=== PATIENT | female | born 1965 | race Hispanic/Latino ===

== ENCOUNTER 2018-01-08 16:23 | Emergency (ER) | payer SELFPAY ==
[2018-01-08] MEDS ORDERED: LIDOCAINE VISCOUS 2% SOLN 15 ML UDC ONE (16:59)
[2018-01-08] MEDS ORDERED: MAGNE/ALUM HYDROXD 30 ML UCUP ONE (16:59)
[2018-01-08 17:12] LABS: Absolute Lymphocytes (CBC) 2.6 K/uL (0.7-4.9); Absolute Monocytes 0.4 K/uL (0.1-1.3); Absolute Neutrophil 6.2 K/uL (1.8-8.0); Basophils % 1.1 % (0-1.3); Eosinophils % 1.5 % (0-4.4); Hematocrit 46.7 % (36.0-45.0); Lymphocytes % 27.4 % (15.3-44.8); MCH 29.5 pg (27.0-35.0); MPV 9.7 fL (7.6-11.3); Monocytes % 4.4 % (3.3-12.3); RBC Red Blood Cell Count 5.37 M/uL (3.86-4.86)
[2018-01-08 17:13] LABS: Protime INR 0.92
--- NOTE | 2018-01-08 17:14 | RAD REPORT ---
EXAM DESCRIPTION: RAD - Chest Single View - 01/08/2018 5:06 pm CLINICAL HISTORY: CHEST PAIN Chest pain. COMPARISON: Chest Single View dated 01/09/2016; CHEST SINGLE VIEW dated 03/07/2013; CHEST SINGLE VIE W dated 04/08/2008 FINDINGS: Portable technique limits examination quality. The lungs are grossly clear. The heart is normal in size. No displaced fractures. IMPRESSION: No acute intrathoracic process suspected.
[2018-01-08 17:27] LABS: Potassium 3.7 mmol/L (3.5-5.1); Troponin (Emerg Dept Use Only) 0.14 ng/mL (0.0-0.045)
[2018-01-08] MEDS ORDERED: ENOXAPARIN 80 MG/0.8 ML SQ ONE (17:44)
--- NOTE | 2018-01-08 17:52 | ER ---
Nurse's Notes [facility] Name: Ai Woodward Age: 52 yrs Sex: Female : 1965 Arrival Date: 01/08/2018 Time: 16:31 Bed 3 Private MD: Diagnosis: Chest pain, unspecified;Non-ST elevation (NSTEMI) myocardial infarction Presentation: 01/08 16:31 Presenting complaint: Patient states: Sternal chest pain X1 week with radiation to arm. aj Patient reports pain subsides with nitro but returns. Transition of care: patient was not received from another setting of care. Onset of symptoms was January 01, 2018. Risk Assessment: Do you want to hurt yourself or someone else? Patient reports no desire to harm self or others. Initial Sepsis Screen: Does the patient meet any 2 criteria? No. Patient's initial sepsis screen is negative. Does the patient have a suspected source of infection? No. Patient's initial sepsis screen is negative. Care prior to arrival: None. 16:31 Method Of Arrival: Ambulatory 16:31 Acuity: CORY 2 aj Triage Assessment: 16:34 General: Appears in no apparent distress. uncomfortable, Behavior is calm, cooperative, aj appropriate for age. Pain: Complains of pain in chest. Neuro: Level of Consciousness is awake, alert, obeys commands, Oriented to person, place, time, situation, Appropriate for age. Cardiovascular: Reports chest pain, shortness of breath. Respiratory: Airway is patent Respiratory effort is even, unlabored, Respiratory pattern is regular, symmetrical. GI: Reports gaseousness. Derm: Skin is intact, is healthy with good turgor, Skin is pink, warm \T\ dry. normal. 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 - Social history:: Smoking status: Patient uses tobacco products, smokes one-half pack cigarettes per day. - Ebola Screening: : Patient negative for fever greater than or equal to 101.5 degrees Fahrenheit, and additional compatible Ebola Virus Disease symptoms Patient denies exposure to infectious person Patient denies travel to an Ebola-affected area in the 21 days before illness onset No symptoms or risks identified at this time. - Family history:: not pertinent. - Hospitalizations: : No recent hospitalization is reported. Screenin:43 Abuse screen: Denies threats or abuse. Denies injuries from another. Nutritional mg2 screening: No deficits noted. Tuberculosis screening: No symptoms or risk factors identified. Fall Risk IV access (20 points). Assessment: 16:35 General: Appears in no apparent distress. comfortable, obese, Behavior is cooperative, bp appropriate for age, anxious. Pain: Complains of pain in left arm Pain does not radiate. Pain began suddenly. Neuro: Level of Consciousness is awake, alert, obeys commands, Oriented to person, place, time, situation, Appropriate for age. Cardiovascular: Rhythm is sinus rhythm. Respiratory: Airway is patent Respiratory effort is even, unlabored, Respiratory pattern is regular, symmetrical. GI: Reports indigestion. : No signs and/or symptoms were reported regarding the genitourinary system. EENT: No deficits noted. Derm: No deficits noted. Musculoskeletal: Circulation, motion, and sensation intact. Range of motion: intact in all extremities. 18:28 Reassessment: PT SIGN OUT AMA. ENCOURAGED TO STAY BY STAFF AND PROVIDER, BUT REFUSED. bp PT ADVISED TO RETURN IF S/S RETURN. LAST SEEN IN STABLE CONDITION, AO4, NO ATAXIA. Vital Signs: 16:34 BP 177 / 96; Pulse 110; Resp 20; Temp 98.4; Pulse Ox 97% on R/A; Weight 82.55 kg; aj Height 5 ft. 0 in. (152.40 cm); 17:14 BP 153 / 85; Pulse 93; Resp 22; Pulse Ox 98% ; bp 16:34 Body Mass Index 35.54 (82.55 kg, 152.40 cm) aj ED Course: 16:31 Patient arrived in ED. aj 16:33 Triage completed. aj 16:34 Arm band placed on left wrist. Patient placed in an exam room, on a stretcher, on aj shelter monitor, on pulse oximetry. EKG completed in triage. Results shown to MD. 16:38 Ralph Keith MD is Attending Physician. rn 16:40 Arsh Young, RN is Primary Nurse. bp 16:41 Inserted saline lock: 18 gauge in right antecubital area, using aseptic technique. bp Blood collected. 16:42 EKG done, by roving technician. reviewed by Ralph Keith MD. 3 16:45 No provider procedures requiring assistance completed. Patient maintains SpO2 bp saturation greater than 95% on room air. 17:06 Chest Single View In Process Unspecified. EDMS 18:29 IV discontinued, intact, bleeding controlled, No redness/swelling at site. Pressure bp dressing applied. Administered Medications: 16:56 Drug: GI Cocktail without - (Maalox Suspension 30 ml, Lidocaine Liquid 2 % 15 bp ml) Route: PO; 17:45 Not Given (Patient Refused): Lovenox 80 mg Sub-Q once rn 17:56 Drug: Lovenox 80 mg Route: Sub-Q; Site: right lower abdomen; mg2 18:19 Follow up: Response: No adverse reaction; Medication administered at discharge. mg2 18:04 Drug: Aspirin Chewable Tablet 324 mg Route: PO; mg2 18:20 Follow up: Response: No adverse reaction; Medication administered at discharge. mg2 18:04 Drug: PlaVIX 75 mg Route: PO; mg2 18:19 Follow up: Response: No adverse reaction; Medication administered at discharge. mg2 Outcome: 18:29 AMA AMA form signed bp 18:29 Condition: stable 18:30 Patient left the ED. bp Signatures: Dispatcher [employer] EDMS Carmita Hua RN RN aj Nieto, Roman, MD MD rn Peltier, Brian, RN Cornelius Dave RN RN [facility] Ava Costello 3
--- NOTE | 2018-01-08 17:52 | EDPHYS ---
Physician Documentation [facility] Name: Ai Woodward Age: 52 yrs Sex: Female : 1965 Arrival Date: 01/08/2018 Time: 16:31 Bed 3 Private MD: ED Physician Ralph Keith HPI: 01/08 16:48 This 52 yrs old Female presents to ER via Ambulatory with complaints of Chest rn Pain > 30 y/o. 16:49 The patient or guardian complains of pain, that is acute. The complaints affect the LUE.rn 16:49 Onset: The symptoms/episode began/occurred 1 week(s) ago. Associated signs and rn symptoms: Pertinent positives: pain, Pertinent negatives: decreased range of motion, deformity, erythema, fever, swelling, tingling, vomiting, warmth, weakness. Severity of symptoms: At their worst the symptoms were mild, in the emergency department the symptoms have resolved. The patient has experienced similar episodes in the past. Reports left arm pain, from shoulder to elbow, at times assoc with chest pain, a little different from chest pain when needed stents, seen 2 years ago, had neg cath. Denies chest pain since then. Took nitro and tums and helps arm pain. No current chest or arm pain. No trauma. Happens randomly and at sleep as well. Lasts approx 20 min. . 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 - Social history:: Smoking status: Patient uses tobacco products, smokes one-half pack cigarettes per day. - Ebola Screening: : Patient negative for fever greater than or equal to 101.5 degrees Fahrenheit, and additional compatible Ebola Virus Disease symptoms Patient denies exposure to infectious person Patient denies travel to an Ebola-affected area in the 21 days before illness onset No symptoms or risks identified at this time. - Family history:: not pertinent. - Hospitalizations: : No recent hospitalization is reported. ROS: 16:49 Constitutional: Negative for fever, chills, and weight loss, Eyes: Negative for injury, rn pain, redness, and discharge, Neck: Negative for injury, pain, and swelling, Cardiovascular: Negative for palpitations, and edema, Respiratory: Negative for shortness of breath, cough, wheezing, and pleuritic chest pain, Abdomen/GI: Negative for abdominal pain, nausea, vomiting, diarrhea, and constipation, MS/Extremity: Negative for injury and deformity, Skin: Negative for injury, rash, and discoloration, Neuro: Negative for headache, weakness, numbness, tingling, and seizure. Exam: 16:49 Constitutional: This is a well developed, well nourished patient who is awake, alert, rn and in no acute distress. Appears anxious and a bit tearful. Head/Face: Normocephalic, atraumatic. Eyes: Pupils equal round and reactive to light, extra-ocular motions intact. Lids and lashes normal. Conjunctiva and sclera are non-icteric and not injected. Cornea within normal limits. Periorbital areas with no swelling, redness, or edema. Neck: Trachea midline, no thyromegaly or masses palpated, and no cervical lymphadenopathy. Supple, full range of motion without nuchal rigidity, or vertebral point tenderness. No Meningismus. Cardiovascular: regular rate and rhythm, no murmur Respiratory: Lungs have equal breath sounds bilaterally, clear to auscultation and percussion. No rales, rhonchi or wheezes noted. No increased work of breathing, no retractions or nasal flaring. Abdomen/GI: Soft, non-tender, with normal bowel sounds. No distension or tympany. No guarding or rebound. No evidence of tenderness throughout. Skin: Warm, dry with normal turgor. Normal color with no rashes, no lesions, and no evidence of cellulitis. MS/ Extremity: Pulses equal, no cyanosis. Neurovascular intact. Full, normal range of motion. Equal circumference. Neuro: Awake and alert, GCS 15, oriented to person, place, time, and situation. Cranial nerves II-XII grossly intact. Motor strength 5/5 in all extremities. Sensory grossly intact. Vital Signs: 16:34 BP 177 / 96; Pulse 110; Resp 20; Temp 98.4; Pulse Ox 97% on R/A; Weight 82.55 kg; aj Height 5 ft. 0 in. (152.40 cm); 17:14 BP 153 / 85; Pulse 93; Resp 22; Pulse Ox 98% ; bp 16:34 Body Mass Index 35.54 (82.55 kg, 152.40 cm) aj MDM: 16:38 Patient medically screened. rn 17:46 Differential diagnosis: NSTEMI, chest pain, radiculopathy. Data reviewed: vital signs, rn nurses notes, lab test result(s), EKG, radiologic studies, plain films, and as a result, I will admit patient. Counseling: I had a detailed discussion with the patient and/or guardian regarding: the historical points, exam findings, and any diagnostic results supporting the discharge/admit diagnosis, lab results, radiology results, the need for further work-up and treatment in the hospital. Response to treatment: the patient's symptoms have resolved after treatment, the patient's condition has returned to base line, the patient is now symptom free, and as a result, I will admit patient. Refusal of service: The patient/guardian displays adequate decision making capability and despite a detailed discussion of alternatives, benefits, risks, and consequences refuses: Admission to the hospital for further work-up and treatment. ED course: Pt with NSTEMI, mild elevation of trop, chest pain free, told her we need to anticoagulate and admit, patient declines, states leaving out of town in morning, does not want to be admitted. Now states ran out of plavix 2 weeks ago and asks if she can go and refill her plavix. Understands high risk of leaving and high chance of myocardial infarction at any time especially in next 2 weeks. She understands risks, spoke with her several times about this and she is sure she wants to leave. . 01/08 17:00 Order name: Basic Metabolic Panel EDOK 01/08 17:00 Order name: Troponin (Emerg Dept Use Only) EDOK 01/08 17:00 Order name: NT PRO-BNP EDOK 01/08 17:00 Order name: CBC with Automated Diff EDOK 01/08 17:00 Order name: Protime (+INR) EDOK 01/08 17:16 Order name: CBC with Automated Diff; Complete Time: 17:35 EDOK 01/08 17:27 Order name: Basic Metabolic Panel; Complete Time: 17:35 EDMS 01/08 17:27 Order name: Troponin (Emerg Dept Use Only); Complete Time: 17:35 EDMS 01/08 17:27 Order name: NT PRO-BNP; Complete Time: 17:35 EDMS 01/08 16:38 Order name: EKG; Complete Time: 16:39 rn 01/08 16:38 Order name: Cardiac monitoring; Complete Time: 16:41 rn 01/08 16:38 Order name: EKG - Nurse/Tech; Complete Time: 16:41 rn 01/08 16:38 Order name: IV Saline Lock; Complete Time: 16:41 rn 01/08 16:38 Order name: Labs collected and sent; Complete Time: 16:41 rn 01/08 16:38 Order name: O2 Per Protocol; Complete Time: 16:41 rn 01/08 16:38 Order name: O2 Sat Monitoring; Complete Time: 16:41 rn 01/08 16:50 Order name: Chest Single View EDMS 01/08 17:15 Order name: RAD; Complete Time: 17:35 EDMS Administered Medications: 16:56 Drug: GI Cocktail without - (Maalox Suspension 30 ml, Lidocaine Liquid 2 % 15 bp ml) Route: PO; 17:45 Not Given (Patient Refused): Lovenox 80 mg Sub-Q once rn 17:56 Drug: Lovenox 80 mg Route: Sub-Q; Site: right lower abdomen; mg2 18:19 Follow up: Response: No adverse reaction; Medication administered at discharge. mg2 18:04 Drug: Aspirin Chewable Tablet 324 mg Route: PO; mg2 18:20 Follow up: Response: No adverse reaction; Medication administered at discharge. mg2 18:04 Drug: PlaVIX 75 mg Route: PO; mg2 18:19 Follow up: Response: No adverse reaction; Medication administered at discharge. mg2 Disposition: 01/08/18 17:51 Patient has left against medical advice. Impression: Chest pain, unspecified, Non-ST elevation (NSTEMI) myocardial infarction. - Patients states they are going to Home. - Condition is Stable. - Discharge Instructions: Nonspecific Chest Pain, Non-ST Segment Elevation Heart Attack. - Prescriptions for Plavix 75 mg Oral Tablet - take 1 tablet by ORAL route once daily; 30 tablet. Follow up: Private Physician; When: Upon discharge from the Emergency Department; Reason: Recheck today's complaints, Continuance of care, Re-evaluation by your physician. - Problem is new. - Symptoms have improved. Signatures: Dispatcher [employer] EDCarmita Chong RN RN Ralph Ash MD MD rn Peltier, Brian RN Cornelius Dave RN RN mg2 Corrections: (The following items were deleted from the chart) 18:05 16:39 Chest Single View+RAD.RAD.BRZ ordered. EDOK EDOK 18:12 16:39 BASIC METABOLIC PANEL+C.LAB.BRZ ordered. EDOK EDOK 18:12 16:39 CBC+H.LAB.BRZ ordered. EDOK EDOK 18:12 16:39 PROBNP+C.LAB.BRZ ordered. [facility] EDOK 18:12 16:39 PROTIME (+INR)+COAG.LAB.BRZ ordered. [facility] EDOK 18:12 16:39 TROPONIN (EMERG DEPT USE ONLY)+C.LAB.BRZ ordered. [facility] 18:30 17:51 01/08/2018 17:51 Patients has left against medical advice. Impression: Chest bp pain, unspecified; Non-ST elevation (NSTEMI) myocardial infarction. Patient states they are going to Home. Condition is Stable. Follow up: Private Physician; When: Upon discharge from the Emergency Department; Reason: Recheck today's complaints, Continuance of care, Re-evaluation by your physician. Problem is new. Symptoms have improved. rn
[2018-01-08] MEDS ORDERED: CLOPIDOGREL 75 MG TABLET ONE (18:06)
[2018-01-08] MEDS ORDERED: ASPIRIN 81 MG CHEWABLE TABLET ONE (18:06)
[2018-01-08 18:34] VITALS: TEMP 98.4
[2018-01-08 18:35] VITALS: BP 153/85; O2SAT 98
--- NOTE | 2018-01-09 03:01 | EKG ---
Test Date: 2018-01-08 Test Time: 16:34:48 Line Cleaner: NEHEMIAH MEASUREMENT RESULTS: Intervals: Rate: 94 [place]: 164 QRSD: 78 QT: 340 QTc: 425 Panther: P: 66 [place]: 164 QRS: 58 T: 56 INTERPRETIVE STATEMENTS: Normal sinus rhythm Septal infarct, age undetermined Abnormal ECG Compared to ECG 01/10/2016 08:55:11 No significant changes Electronically Signed On 01-09-18 03:00:31 CDT by Jaziel Guy
== END 2018-01-08 18:30 | disposition left against medical advice (07) ==
LOC: ER 16:23
DX: I21.4 Non-ST elevation (NSTEMI) myocardial infarction (principal); F41.9 Anxiety disorder, unspecified; I10 Essential (primary) hypertension; F17.210 Nicotine dependence, cigarettes, uncomplicated; Z79.01 Long term (current) use of anticoagulants; Z95.818 Presence of other cardiac implants and grafts
CPT/HCPCS: 36415; 71045; 80048; 83880; 84484; 85025; 85610; 93005; 96372; 99285; J1650

== ENCOUNTER 2024-08-10 17:06 | Inpatient (IN) | payer SELFPAY ==
[2024-08-10] MEDS ORDERED: MORPHINE 4 MG/ML SYR ONE (18:08)
[2024-08-10] MEDS ORDERED: ONDANSETRON 4 MG/2 ML VIAL ONE (18:08)
[2024-08-10] MEDS ORDERED: ASPIRIN 81 MG CHEWABLE TABLET ONE (18:08)
[2024-08-10] MEDS ORDERED: NA CHLORIDE 0.9% 500 ML ONE (18:09)
[2024-08-10 18:11] LABS: Absolute Basophils 0.1 K/uL (0-0.5); Absolute Eosinophils 0.2 K/uL (0-0.5); Absolute Lymphocytes (CBC) 3.1 K/uL (0.7-4.9); Absolute Monocytes 0.7 K/uL (0.1-1.3); Absolute Neutrophil 10.8 K/uL (1.8-8.0); Basophils % 0.7 % (0-1.3); Eosinophils % 1.1 % (0-4.4); Hematocrit 48.2 % (36.0-45.0); Hemoglobin 16.5 g/dL (12.0-15.0); Lymphocytes % 20.8 % (15.3-44.8); MCH 28.8 pg (27.0-35.0); MCHC 34.3 g/dL (32.0-36.0); MPV 8.9 fL (7.6-11.3); Neutrophils % 72.4 % (41.7-73.7); Nucleated Red Blood Cells % 0.1 % (0-0); Platelets 347 thou/uL (152-406); RBC Red Blood Cell Count 5.74 M/uL (3.86-4.86)
[2024-08-10 18:26] LABS: ALT/SGPT 25 U/L (13-56); AST/SGOT 67 U/L (15-37); Albumin 3.3 g/dL (3.4-5.0); Albumin/Globulin Ratio 0.8 (1.1-1.8); Alkaline Phosphatase 181 U/L (45-117); Anion Gap 9.7 mEq/L (5.0-15.0); BUN Blood Urea Nitrogen 13 mg/dL (7-18); Bicarbonate 25 mEq/L (21-32); Bilirubin Total 0.5 mg/dL (0.2-1.0); Globulin 4.2 g/dL (2.3-3.5); Glomerular Filtration Rate 104 ml/min (=/>90); Glucose Level 205 mg/dL (74-106); Lipase 26 U/L (13-75); Magnesium 1.7 mg/dL (1.6-2.4); NT PRO-BNP 1782 pg/mL (<125); Potassium 3.7 mEq/L (3.5-5.1); Protein, Total 7.5 g/dL (6.4-8.2); Sodium Level 132 mEq/L (136-145)
--- NOTE | 2024-08-10 18:26 | RAD REPORT ---
EXAM: Chest Single View HISTORY: 59 years Female CHEST PAIN COMPARISON: 01/08/2018 FINDINGS: LUNGS/PLEURA: Linear opacities in the lung bases. No definite consolidation or edema. CARDIAC/MEDIASTINUM: The cardiac silhouette is within normal limits. UPPER ABDOMEN: No significant abnormality. BONES: No acute abnormality. LINES/TUBES/OTHER: N/A IMPRESSION: Linear opacities in lung bases probably reflects atelectasis. No definite acute process.
[2024-08-10 18:38] LABS: PT Prothrombin Time 10.8 SECONDS (10-13.0); Protime INR 0.94
[2024-08-10 18:39] LABS: Bilirubin Direct < 0.2 mg/dL (0-0.2); Bilirubin Indirect, Calculated 0.3 mg/dL (0.2-0.8)
[2024-08-10 18:44] LABS: Troponin High Sensitivity 9223.8 pg/mL (<58.9)
[2024-08-10] MEDS ORDERED: LORazepam 2 MG/ML VIAL ONE (18:59)
[2024-08-10] MEDS ORDERED: FENTANYL CITR 100 MCG/2 ML ONE (19:00)
--- NOTE | 2024-08-10 19:56 | RAD REPORT ---
EXAM: Angio Aorta For Dissection CLINICAL INDICATION: Female, 59 years chest pain TECHNIQUE: CTA of the aorta was obtained including the chest, abdomen and pelvis, with IV contrast, a s per department protocol. Axial, sagittal and coronal reconstructions were obtained. Post-processing was applied at the acquisition scanner with concurrent physician supervision which in cludes 3D reconstructions, MIPs, volume rendered images and/or shaded surface rendering. One or more of the following dose reduction techniques were used: Automated exposure control, adjustment of the mA and/or kV according to the patient size, and/or iterative reconstruction. Unless otherwise specified, incidental findings do not require dedicated imaging follow-up. [id number]. COMPARISON: No prior exam. FINDINGS: ---THORAX--- LOWER NECK AND CHEST WALL: Visualized thyroid gland and soft tissues are normal. MEDIASTINUM AND LYMPH NODES: No mediastinal mass or fluid collection. Normal size mediastinal, hilar, and axillary lymph nodes. THORACIC AORTA: No thoracic aortic aneurysm. PULMONARY ARTERIES: Caliber is within normal limits. HEART: Mild cardiomegaly. Moderate coronary artery calcifications.No significant pericardial effusion . LUNGS AND AIRWAYS: Airways are clear. No evidence of airspace or interstitial process. No suspicious and/or stable pulmonary nodules. PLEURA: No pleural effusion. No pneumothorax. ---ABDOMEN/PELVIS--- UPPER GI: No significant abnormality. LIVER: Hepatic steatosis. Benign appearing and/or stable lesions are identified. No suspicious mass. GALLBLADDER/BILE DUCTS: Cholecystectomy. Mild extra-hepatic biliary ductal dilatation is likely relat ed to the post-cholecystectomy state. Consider correlating with LFT's.? PANCREAS: No mass, ductal dilation, or nilam-pancreatic fluid. SPLEEN: Unremarkable. ADRENALS: No adrenal masses. KIDNEYS AND URETERS: No hydronephrosis.Low density and/or too small to characterize renal lesions whi ch are statistically benign.Punctate stone in the lower pole right kidney. ABDOMINAL AORTA AND OTHER VESSELS: Mild atherosclerotic changes. PERITONEUM: No abnormal free fluid. No free air. LYMPH NODES: No pathologic lymphadenopathy. ABDOMINAL WALL: Unremarkable SMALL BOWEL/COLON: Small bowel has normal course and caliber. No colonic wall thickening or pericolon ic inflammatory changes.Normal appendix. URINARY BLADDER: Underdistended but grossly unremarkable. REPRODUCTIVE ORGANS: No pathologic process. ---COMBINED--- MUSCULOSKELETAL: Multilevel degenerative changes in the spine. No acute fracture. ADDITIONAL FINDINGS: None. IMPRESSION: No aortic aneurysm or dissection. No pulmonary embolism. No acute findings in the chest, abdomen, or pelvis.
--- NOTE | 2024-08-10 20:24 | ER ---
Nurse's Notes [facility] Name: Ai Woodward Age: 59 yrs Sex: Female : 1965 Arrival Date: 08/10/2024 Time: 17:06 Bed 27 Private MD: Diagnosis: Subsequent non-ST elevation (NSTEMI) myocardial infarction Presentation: 08/10 17:43 Chief complaint: Patient states: she is having chest pain, left arm pain and jaw pain ap3 that started at 0100 this morning. patient currently rates her pain as a 10/10 on the pain scale. patient reports she is visiting her son, and is from out of town. Coronavirus screen: At this time, the client does not indicate any symptoms associated with coronavirus-19. Ebola Screen: No symptoms or risks identified at this time. Initial Sepsis Screen: Does the patient meet any 2 criteria? Yes Does the patient have a suspected source of infection? No. Patient's initial sepsis screen is negative. Risk Assessment: Do you want to hurt yourself or someone else? Patient reports no desire to harm self or others. Onset of symptoms was August 10, 2024 at 01:00. 17:43 Method Of Arrival: Ambulatory ap3 17:43 Acuity: CORY 2 ap3 Triage Assessment: 17:45 General: Appears uncomfortable, Behavior is calm, cooperative. Pain: Complains of pain ap3 in left jaw, chest and left arm Pain currently is 10 out of 10 on a pain scale. Neuro: Level of Consciousness is awake, alert, obeys commands, Oriented to person, place, time, situation, Appropriate for age Gait is steady. Cardiovascular: Reports chest pain. Respiratory: Airway is patent Respiratory effort is even, unlabored, Respiratory pattern is regular, symmetrical. GI:. Historical: - Allergies: 17:44 No Known Allergies; ap3 - PMHx: 17:44 Anxiety; Hypertension; Myocardial infarction; ap3 - PSHx: 17:44 cardiac stent X's 4 (Hypertension); ap3 - Immunization history:: Client reports having NOT received the Covid vaccine. Flu vaccine is not up to date. - Infectious Disease History:: Denies. - Social history:: Smoking status: Patient reports the use of cigarette tobacco products. Screenin:46 Abuse screen: Denies threats or abuse. Nutritional screening: No deficits noted. ap3 Tuberculosis screening: No symptoms or risk factors identified. 19:00 [facility] ED Fall Risk Assessment (Adult) History of falling in the last 3 months, rg5 including since admission No falls in past 3 months (0 pts) Confusion or Disorientation No (0 pts) Intoxicated or Sedated No (0 pts) Impaired Gait No (0 pts) Mobility Assist Device Used No (0 pt) Altered Elimination Score/Fall Risk Level 0 - 2 = Low Risk Oriented to surroundings, Maintained a safe environment, Hourly rounding (assess needs \T\ fall precautionary measures) done. Assessment: 19:00 Pain: Pain radiates to left arm Quality of pain is described as aching, Pain began 1 rg5 hour ago. 19:00 Neuro: Level of Consciousness is awake, alert, obeys commands, Oriented to person, rg5 place, time, situation. Cardiovascular: Reports chest pain. Respiratory: Airway is patent Trachea midline Respiratory effort is even, unlabored. GI: Abdomen is round obese. : No signs and/or symptoms were reported regarding the genitourinary system. EENT: No deficits noted. Derm: Skin is intact, Skin is dry, Skin is normal. Musculoskeletal: Circulation, motion, and sensation intact. Range of motion: intact in all extremities. 20:00 Reassessment: No changes from previously documented assessment. Patient and/or family rg5 updated on plan of care and expected duration. Pain level reassessed. Patient is alert, oriented x 3, equal unlabored respirations, skin warm/dry/pink. 21:00 Reassessment: No changes from previously documented assessment. Patient and/or family rg5 updated on plan of care and expected duration. Pain level reassessed. Patient is alert, oriented x 3, equal unlabored respirations, skin warm/dry/pink. Vital Signs: 17:43 BP 147 / 76; Pulse 95; Resp 18; Temp 98.1; Pulse Ox 100% ; Weight 85.73 kg; Height 5 ap3 ft. 0 in. ; Pain 10/10; 20:00 BP 119 / 65; Pulse 95; Resp 18; Pulse Ox 95% on R/A; Weight 92 kg; rg5 21:00 BP 123 / 57; Pulse 96; Resp 18; Pulse Ox 95% ; Height 5 ft. 0 in. ; rg5 17:43 Body Mass Index 36.91 (92.00 kg, 152.4 cm) ap3 17:43 Pain Scale: Adult ap3 ED Course: 17:08 Patient arrived in ED. im 17:11 Phil Olea PA is PHCP. cp 17:11 Calixto Portillo DO is Attending Physician. cp 17:42 EKG done, by ED staff, reviewed by Phil HERRERA. ap3 17:44 Triage completed. ap3 17:46 Patient maintains SpO2 saturation greater than 95% on room air. ap3 17:46 Arm band placed on right wrist. ap3 17:52 Arsh Young, RN is Primary Nurse. bp 17:56 Initial lab(s) drawn, by me, sent to lab. Inserted saline lock: 20 gauge in right bp antecubital area, using aseptic technique. Blood collected. Flushed with 10 mL NS. 18:19 XRAY Chest (1 view) In Process Unspecified. EDMS 19:00 No provider procedures requiring assistance completed. Patient admitted, IV remains in rg5 place. intact, No redness/swelling at site. 19:00 Patient has correct armband on for positive identification. Provided Education on: rg5 needs for admit. Client placed on continuous cardiac and pulse oximetry monitoring. NIBP monitoring applied. adobe cq developer on. Pulse ox on. NIBP on. Door closed. Noise minimized. Warm blanket given. 19:44 CT Aorta for Dissection In Process Unspecified. EDMS 20:21 Fernando Spencer MD is Hospitalizing Provider. cp 21:08 EKG done, by ED staff, reviewed by Phil HERRERA. sa1 08/11 09:07 PHCP role handed off by Phil Olea PA db 09:07 Attending Physician role handed off by Calixto Portillo DO db Administered Medications: 08/10 18:15 Drug: Aspirin PO Chewable Tablet 162 mg PO once Route: PO; bp 08/11 00:18 Follow up: Response: No adverse reaction rg5 08/10 18:15 Drug: NS 0.9% IV 500 ml 500 ml IV at 1 bolus once; to be given as a bolus over 60 bp minutes Volume: 500 ml; Route: IV; Rate: 1 bolus; Site: right antecubital; 19:30 Follow up: IV Status: Completed infusion; IV Intake: 500ml rg5 18:15 Drug: morphine IVP or IV 2 mg IVP once over 4 mins Route: IVP; Infused Over: 4 mins; bp Site: right antecubital; 08/11 00:18 Follow up: Response: No adverse reaction; Pain is decreased rg5 08/10 18:15 Drug: morphine IVP or IV 2 mg IVP once over 4 mins Route: IVP; Infused Over: 4 mins; bp Site: right antecubital; 08/11 00:19 Follow up: Response: No adverse reaction; Pain is decreased rg5 08/10 18:15 Drug: Ondansetron IVP 4 mg IVP once; over 2 minutes Route: IVP; Site: right antecubital;bp 08/11 00:20 Follow up: Response: No adverse reaction rg5 08/10 19:12 Drug: Ativan IVP 1 mg IVP once Route: IVP; Site: right antecubital; bp 08/11 00:18 Follow up: Response: No adverse reaction rg5 08/10 19:12 Drug: fentaNYL (PF) IVP 25 mcg IVP once Route: IVP; Site: right antecubital; bp 19:30 Follow up: Response: No adverse reaction; Pain is decreased rg5 19:12 Drug: fentaNYL (PF) IVP 25 mcg IVP once Route: IVP; Site: right antecubital; bp 19:30 Follow up: Response: No adverse reaction; Pain is decreased rg5 21:11 Drug: Heparin ([place]-Bolus No thrombolytic) - HEParin IVP 60 units/kg IVP once; Max 5000 rg5 units {Co-Signature: vc1 (Carmela Kelley RN).} Route: IVP; Site: right antecubital; 08/11 00:17 Follow up: Response: No adverse reaction rg5 08/10 21:11 Drug: Heparin ([place] Drip) 12 units/kg/[place] - ([place] [address] units, D5W IV 500 ml) IV at rg5 calculated rate Per protocol; Max initial rate 1000 units/hr {Co-Signature: vc1 (Carmela Kelley RN).} Route: IV; Rate: 1000 units/hr; Site: right antecubital; 08/11 09:06 Follow up: Response: No adverse reaction; IV Status: Infusion continued upon admission db Medication: 08/10 19:00 VIS not applicable for this client. rg5 Intake: 19:30 IV: 500ml; Total: 500ml. rg5 Outcome: 20:23 Decision to Hospitalize by Provider. cp 21:00 Admitted to ER Hold. Please see [facility] for further documentation. rg5 21:00 Condition: stable rg5 21:00 Instructed on the need for admit, 08/11 09:06 Patient left the ED. db 09:11 Patient left the ED. Signatures: Dispatcher [employer] EDPA Charlotte Posada RN RN Phil Olea, PA PA cp Arsh Young, RN RN bp Carmita Villarreal RN RN ap3 Cheyenne Darden RN RN db Lynn Gilbert Rommel RN RN rg5 Sultan Jose E sa1 Carmela Kelley RN vc1
--- NOTE | 2024-08-10 20:24 | EDPHYS ---
Physician Documentation [facility] Name: Ai Woodward Age: 59 yrs Sex: Female : 1965 Arrival Date: 08/10/2024 Time: 17:06 Bed 27 Private MD: ED Physician HPI: 08/10 17:45 This 59 yrs old Female presents to ER via Ambulatory with complaints of Chest cp Pain, Arm Pain, Jaw Pain. 17:45 The patient or guardian reports chest pain that is located primarily in the substernal cp area. Onset: this morning, about 0200. The pain radiates to the left arm, the left shoulder, left jaw, left back. Associated signs and symptoms: Pertinent positives: nausea, Pertinent negatives: abdominal pain, lower extremity pain, lower extremity swelling, syncope. The chest pain is described as a heaviness, a pressure, sharp jaw and arm pain. Duration: The patient or guardian reports a single episode, that is still ongoing, and worsening. Patient reports HX of MD times 2, 4 cardiac stents placed with 1 lower leg stent placed. Patient started about 0200 this morning and awoke patient from sleep. Pain similar to heart attack pain. Historical: - Allergies: 17:44 No Known Allergies; ap3 - PMHx: 17:44 Anxiety; Hypertension; Myocardial infarction; ap3 - PSHx: 17:44 cardiac stent X's 4 (Hypertension); ap3 - Immunization history:: Client reports having NOT received the Covid vaccine. Flu vaccine is not up to date. - Infectious Disease History:: Denies. - Social history:: Smoking status: Patient reports the use of cigarette tobacco products. ROS: 17:45 Cardiovascular: Positive for chest pain, of the sternal, cp 17:45 Eyes: Negative for injury, pain, redness, and discharge, cp 17:45 Constitutional: Negative for body aches, chills, fever, poor PO intake, 17:45 ENT: Negative for drainage from ear(s), ear pain, sore throat, difficulty swallowing, difficulty handling secretions, 17:45 Respiratory: Negative for cough, shortness of breath, wheezing, 17:45 Abdomen/GI: Negative for abdominal pain, vomiting, diarrhea, constipation, 17:45 Back: Positive for radiated pain, 17:45 MS/extremity: Positive for pain, of the left arm and left jaw, 17:45 All other systems are negative, Exam: 17:45 ECG was reviewed by the Attending Physician. cp 17:50 Constitutional: The patient appears in no acute distress, alert, awake, cp non-diaphoretic, non-toxic, well developed, well nourished, uncomfortable, overweight 17:50 Head/Face: Normocephalic, atraumatic. cp 17:50 Eyes: Periorbital structures: appear normal, Conjunctiva: normal, no exudate, no injection, Sclera: no appreciated abnormality, Lids and lashes: appear normal, bilaterally, 17:50 ENT: External ear(s): are unremarkable, Nose: is normal, Posterior pharynx: Airway: no evidence of obstruction, patent, 17:50 Neck: ROM/movement: pain, that is mild, limited range of motion, is not appreciated, 17:50 Chest/axilla: Inspection: normal, Palpation: crepitus, is not appreciated, tenderness, is not appreciated, 17:50 Cardiovascular: Rate: normal, Rhythm: regular, Edema: is not appreciated, JVD: is not cp appreciated, 17:50 Respiratory: the patient does not display signs of respiratory distress, Respirations: normal, no use of accessory muscles, no retractions, labored breathing, is not present, Breath sounds: are clear throughout, no decreased breath sounds, no stridor, no wheezing, 17:50 Abdomen/GI: Inspection: abdomen appears normal, Palpation: abdomen is soft and non-tender, in all quadrants, 17:50 Back: pain, that is moderate, of the left scapular area, 17:50 Neuro: Orientation: to person, place \T\ time. Mentation: is normal, Motor: moves all fours, strength is normal, Sensation: no obvious gross deficits, 21:08 ECG was reviewed by the Attending Physician. cp Vital Signs: 17:43 BP 147 / 76; Pulse 95; Resp 18; Temp 98.1; Pulse Ox 100% ; Weight 85.73 kg; Height 5 ap3 ft. 0 in. ; Pain 10/10; 20:00 BP 119 / 65; Pulse 95; Resp 18; Pulse Ox 95% on R/A; Weight 92 kg; rg5 21:00 BP 123 / 57; Pulse 96; Resp 18; Pulse Ox 95% ; Height 5 ft. 0 in. ; rg5 17:43 Body Mass Index 36.91 (92.00 kg, 152.4 cm) ap3 17:43 Pain Scale: Adult ap3 MDM: 20:05 Data reviewed: vital signs, nurses notes, lab test result(s), EKG, radiologic studies, cp CT scan, plain films, and as a result, I will admit patient. 20:05 The patient was given aspirin in the Emergency Department. Management of patient was cp discussed with the following: [place] Debeader: DR Urbina, cardiology, will consult and requests patient to be npo after midnight. I considered the following discharge prescriptions or medication management in the emergency department Medications were administered in the Emergency Department. See MAR. Independent interpretation of the following test(s) in the Emergency Department EKG: See my EKG interpretation above. Care significantly affected by the following chronic conditions: Hypertension, Obesity. Response to treatment: the patient's symptoms have markedly improved after treatment. 20:23 Medical Screening Exam initiated 08/10 17:41 Order name: Basic Metabolic Panel; Complete Time: 18:50 08/10 18:57 Interpretation: Normal except: NA 132; GLUC 205. 08/10 17:41 Order name: CBC with Diff; Complete Time: 18:32 08/10 18:32 Interpretation: Normal except: WBC 14.90; RBC 5.74; HGB 16.5; HCT 48.2; NEUT A 10.8. 08/10 17:41 Order name: LFT's; Complete Time: 18:50 08/10 18:58 Interpretation: Normal except: AST 67; ALK 181; ALB 3.3; GLOB 4.2; A/G 0.8. 08/10 17:41 Order name: Magnesium; Complete Time: 18:50 cp 08/10 17:41 Order name: NT PRO-BNP; Complete Time: 18:50 08/10 19:33 Interpretation: Reviewed. 08/10 17:41 Order name: PT-INR; Complete Time: 18:50 cp 08/10 17:41 Order name: Troponin HS; Complete Time: 18:50 cp 08/10 18:57 Interpretation: Reviewed. 08/10 17:41 Order name: UA Rfx Rafa Cult if indicated; Complete Time: 13:12 cp 08/10 17:41 Order name: Lipase; Complete Time: 18:50 cp 08/10 20:38 Order name: Ptt, Activated; Complete Time: 13:12 sp4 08/10 20:47 Order name: CBC with Automated Diff EDMS 08/10 20:47 Order name: CBC with Automated Diff; Complete Time: 13:12 EDMS 08/10 20:47 Order name: Comprehensive Metabolic Panel EDMS 08/10 20:47 Order name: Comprehensive Metabolic Panel; Complete Time: 13:12 EDMS 08/10 20:47 Order name: Troponin High Sensitivity EDMS 08/10 20:47 Order name: Troponin High Sensitivity EDMS 08/10 20:47 Order name: Troponin High Sensitivity; Complete Time: 13:12 EDMS 08/10 20:47 Order name: Troponin High Sensitivity; Complete Time: 13:12 EDMS 08/11 00:26 Order name: Ptt, Activated rg5 08/11 01:41 Order name: PTT, Activated Partial Thromb; Complete Time: 13:12 EDMS 08/11 05:08 Order name: Ptt, Activated rg5 08/11 06:04 Order name: PTT, Activated Partial Thromb; Complete Time: 13:12 EDMS 08/10 17:41 Order name: XRAY Chest (1 view); Complete Time: 18:32 cp 08/10 18:50 Order name: CT Aorta for Dissection; Complete Time: 19:59 cp 08/10 20:00 Interpretation: Report reviewed. cp 08/10 20:02 Order name: EKG; Complete Time: 20:02 cp 08/10 17:41 Order name: Cardiac monitoring; Complete Time: 17:54 cp 08/10 17:41 Order name: EKG - Nurse/Tech; Complete Time: 17:46 cp 08/10 17:41 Order name: IV Saline Lock; Complete Time: 17:56 cp 08/10 17:41 Order name: Labs collected and sent; Complete Time: 17:56 cp 08/10 17:41 Order name: O2 Per Protocol; Complete Time: 17:54 cp 08/10 17:41 Order name: O2 Sat Monitoring; Complete Time: 17:54 cp 08/10 20:01 Order name: Vital Signs: to include blood pressure; Complete Time: 21:04 cp 08/10 20:02 Order name: EKG - Nurse/Tech; Complete Time: 21:05 cp EC:45 Rate is 95 beats/min. Rhythm is regular. [place] interval is normal. QRS interval is normal. cp QT interval is normal. T waves are Inverted in lead aVR. Interpreted by me. Reviewed by me. 21:08 Rate is 96 beats/min. Rhythm is regular. [place] interval is normal. QRS interval is normal. cp QT interval is normal. T waves are Inverted in lead aVR. Interpreted by me. Reviewed by me. Administered Medications: 18:15 Drug: Aspirin PO Chewable Tablet 162 mg PO once Route: PO; bp 08/11 00:18 Follow up: Response: No adverse reaction rg5 08/10 18:15 Drug: NS 0.9% IV 500 ml 500 ml IV at 1 bolus once; to be given as a bolus over 60 bp minutes Volume: 500 ml; Route: IV; Rate: 1 bolus; Site: right antecubital; 19:30 Follow up: IV Status: Completed infusion; IV Intake: 500ml rg5 18:15 Drug: morphine IVP or IV 2 mg IVP once over 4 mins Route: IVP; Infused Over: 4 mins; bp Site: right antecubital; 08/11 00:18 Follow up: Response: No adverse reaction; Pain is decreased rg5 08/10 18:15 Drug: morphine IVP or IV 2 mg IVP once over 4 mins Route: IVP; Infused Over: 4 mins; bp Site: right antecubital; 08/11 00:19 Follow up: Response: No adverse reaction; Pain is decreased rg5 08/10 18:15 Drug: Ondansetron IVP 4 mg IVP once; over 2 minutes Route: IVP; Site: right antecubital;bp 08/11 00:20 Follow up: Response: No adverse reaction rg5 08/10 19:12 Drug: Ativan IVP 1 mg IVP once Route: IVP; Site: right antecubital; bp 08/11 00:18 Follow up: Response: No adverse reaction rg5 08/10 19:12 Drug: fentaNYL (PF) IVP 25 mcg IVP once Route: IVP; Site: right antecubital; bp 19:30 Follow up: Response: No adverse reaction; Pain is decreased rg5 19:12 Drug: fentaNYL (PF) IVP 25 mcg IVP once Route: IVP; Site: right antecubital; bp 19:30 Follow up: Response: No adverse reaction; Pain is decreased rg5 21:11 Drug: Heparin ([place]-Bolus No thrombolytic) - HEParin IVP 60 units/kg IVP once; Max 5000 rg5 units {Co-Signature: 1 (Carmela Kelley RN).} Route: IVP; Site: right antecubital; 08/11 00:17 Follow up: Response: No adverse reaction rg5 08/10 21:11 Drug: Heparin ([place] Drip) 12 units/kg/[place] - ([place] [address] units, D5W IV 500 ml) IV at rg5 calculated rate Per protocol; Max initial rate 1000 units/hr {Co-Signature: vc1 (Carmela Kelley RN).} Route: IV; Rate: 1000 units/hr; Site: right antecubital; 08/11 09:06 Follow up: Response: No adverse reaction; IV Status: Infusion continued upon admission db Disposition: 08/10 17:55 I was immediately available on-site in the Emergency Department for consultation in the ms3 care of the patient. 08/11 02:08 Critical Care:. cp Disposition Summary: 08/10/24 20:23 Hospitalization Ordered Notes: Hospitalization Status: Inpatient Admission cp Provider: Fernando Spencer cp Condition: Stable cp Problem: new cp Symptoms: have improved cp Bed/Room Type: Standard Location: [facility] ER HOLD(08/10/24 22:25) vc1 Room Assignment: ERHOLD-(08/10/24 22:25) vc1 Diagnosis - Subsequent non-ST elevation (NSTEMI) myocardial infarction cp Forms: - Medication Reconciliation Form cp - SBAR form cp - Leadership Thank You Letter cp Critical care time excluding procedures: 02:08 Critical care time: Bedside Care: 10 minutes, Consultation: 30 minutes. Total time: 40 cp minutes Signatures: Dispatcher [employer] EDLA Phil Olea PA PA cp Arsh Young RN RN Carmita Davies RN RN ap3 Calixto Portillo DO DO ms3 Carmela Kelley RN RN vc1 Ramírez Garcia RN RN rg5 Cheyenne Darden RN db Carmela Kelley RN vc1 Corrections: (The following items were deleted from the chart) 08/10 17:42 17:42 BASIC METABOLIC PANEL+C.LAB.BRZ ordered. EDMS EDMS 17:42 17:42 CBC+H.LAB.BRZ ordered. EDMS EDMS 17:42 17:42 HEPATIC FUNCTION+C.LAB.BRZ ordered. EDMS EDMS 17:42 17:42 MAGNESIUM+C.LAB.BRZ ordered. EDMS EDMS 17:42 17:42 PROBNP+C.LAB.BRZ ordered. EDMS EDMS 17:42 17:42 PROTIME (+INR)+COAG.LAB.BRZ ordered. EDMS EDMS 17:42 17:42 Troponin High Sensitivity+C.LAB.BRZ ordered. EDMS EDMS 17:42 17:42 UA Rfx Rafa Cult if indicated+U.LAB.BRZ ordered. EDMS EDMS 17:42 17:42 LIPASE+C.LAB.BRZ ordered. EDMS EDMS 17:42 17:42 Chest Single View+RAD.RAD.BRZ ordered. EDMS EDMS 18:51 18:51 Angio Aorta For Dissection+CT.RAD.BRZ ordered. EDMS EDMS 20:39 20:39 PTT, ACTIVATED+COAG.LAB.BRZ ordered. EDMS EDMS 22:25 20:23 Intensive Care Unit cp vc1 22:25 20:23 cp vc1
[2024-08-10] MEDS ORDERED: ONDANSETRON 4 MG/2 ML VIAL IV PRN (20:42)
[2024-08-10] MEDS ORDERED: ACETAMINOPHEN 325 MG TABLET PO PRN (20:42)
--- NOTE | 2024-08-10 20:46 | P.HP ---
Certification for Inpatient Patient admitted to: Inpatient With expected LOS: >2 Midnights Practitioner: I am a practitioner with admitting privileges, knowledge of patient current condition, hospital course, and medical plan of care. Services: Services provided to patient in accordance with Admission requirements found in Title 42 Section 412.3 of the Code of Federal Regulations Patient History Date of Service: 08/11/24 Reason for admission: NSTEMI History of Present Illness: 59-year-old female with past medical history of diabetes, hypertension, hyperlipidemia, obesity, CAD status post stents came to ER with chest pain. Pain is located retrosternally with radiation to left side of arm pressure-like feeling. 4 out of 10 in severity at the time of interview. No fever or chills. Pain is not related to the position or exercise. Associated with mild shortness of breath. Denies any diaphoresis. No nausea vomiting or diarrhea. Patient was assessed in the ER and was admitted for further management of NSTEMI Allergies No Known Allergies Allergy (Verified 01/09/16 18:40) Home medications list reviewed: Yes Home Medications: Clopidogrel Bisulfate [Plavix*] 75 mg PO DAILY #30 tablet 01/11/16 Nitroglycerin [Nitrostat*] 0.4 mg SL UD PRN #1 bottle 01/11/16 Glimepiride 2 mg PO BID #60 tablet 01/12/16 Metformin ER [Glucophage ER*] 1,000 mg PO BID #60 tab.sa 01/12/16 Metoprolol Tartrate [Lopressor*] 50 mg PO BID #60 tab 01/12/16 Simvastatin 40 mg PO BEDTIME #30 tablet 01/12/16 - Past Medical/Surgical History Diabetic: Yes Past Medical History: Reviewed- Non-Contributory -: anxiety -: hypertension -: diabetes Past Surgical History: Reviewed- Non-Contributory -: tubal ligation -: cholecystectomy -: heart stents 2012 - Family History Mother -: Hypertension Notes: spurs heels, knee problems Father -: Hypertension, Diabetes Notes: dialysis, esrd - Social History Smoking Status: Never smoker Alcohol use: No CD- Drugs: No Caffeine use: Yes Review of Systems 10-point ROS is otherwise unremarkable Physical Examination - Vital Signs Temperature: 98.2 F Blood Pressure: 103/41 Pulse: 88 Respirations: 18 Pulse Ox (%): 94 - Physical Exam General: Alert, In no apparent distress, Oriented x3, Obese HEENT: Atraumatic, Normocephalic Neck: Supple, No LAD Respiratory: Clear to auscultation bilaterally, Normal air movement Cardiovascular: Regular rate/rhythm, Normal S1 S2 Capillary refill: <2 Seconds Gastrointestinal: Soft and benign, W/out hepatosplenomegaly Musculoskeletal: No clubbing, No swelling Integumentary: No rashes, No breakdown Neurological: Normal speech, Normal strength at 5/5 x4 extr, Cranial nerves 3-12 intact, Normal reflexes 2+, Normal affect Lymphatics: No axilla or inguinal lymphadenopathy - Studies Laboratory Data (last 24 hrs) 08/10/24 08/10/24 08/10/24 17:55 17:55 17:55 WBC 14.90 H Hgb 16.5 H Hct 48.2 H Plt Count 347 PT 10.8 INR 0.94 Sodium 132 L Potassium 3.7 BUN 13 Creatinine 0.59 Glucose 205 H Magnesium 1.7 Total Bilirubin 0.5 AST 67 H ALT 25 Alkaline Phosphatase 181 H Lipase 26 Assessment and Plan - Plan NSTEMI Will trend cardiac enzymes Will monitor telemetry Started on aspirin and statin Continue Plavix EKG did not show any acute changes suggestive of ischemia Will get an echocardiogram Cardiology consult Will keep n.p.o. for now Hypertension Antihypertensives titrated Continue home medications and titrate as needed Hyperlipidemia Continue statin Diabetes Insulin sliding scale Accu-Chek before every meal and at bedtime GI/DVT prophylaxis Advanced directive full code Discharge Plan: Home Plan to discharge in: 48 Hours - Advance Directives Does patient have a Living Will: No Does patient have a Durable POA for Healthcare: No - Code Status/Comfort Care Code Status: Full Code Time Spent Managing Pts Care (In Minutes): 48
[2024-08-10] MEDS ORDERED: HEPARIN 5000 UNIT/ML 1 ML VIAL ONE (20:53)
[2024-08-10] MEDS ORDERED: HEPARIN/D5W 25,000 UNIT/500 ML BAG IV ONE (20:54)
[2024-08-10] MEDS ORDERED: NITROGLYCERIN 0.4 MG/TAB SL PRN (22:20)
[2024-08-11] MEDS ORDERED: ATORVASTATIN 20 MG TAB ONE (01:21)
[2024-08-11] MEDS ORDERED: METOPROLOL TAR 50 MG TAB ONE (01:21)
[2024-08-11] MEDS: METOPROLOL TAR 50 MG TAB PO SCH (01:26)
[2024-08-11] MEDS: ATORVASTATIN 20 MG TAB PO SCH (01:27)
[2024-08-11 01:41] VITALS: BMI 39.4
[2024-08-11 02:56] LABS: Sqamous Epithelial <5 /HPF (None Seen); Urine Bacteria None Seen /HPF (<20); Urine Bilirubin NEGATIVE (Negative); Urine Blood Negative (Negative); Urine Clarity Clear (Clear); Urine Color Yellow (Yellow); Urine Culture Reflex Order NOT NEEDED; Urine Glucose TRACE (Negative); Urine Ketones NEGATIVE (Negative); Urine Microscopic Reflex YN ORDER UMIC; Urine Mucus Slight /HPF (None Seen); Urine Nitrite NEGATIVE (Negative); Urine Protein 1+ (Negative); Urine RBC <5 /HPF (None Seen); Urine Urobilinogen 3+ (Normal); Urine WBC <5 /HPF (<5); Urine pH 6.5 (5.0-7.0)
[2024-08-11 03:11] LABS: Specific Gravity > 1.030 (1.005-1.030)
[2024-08-11 05:53] LABS: Absolute Basophils 0.1 K/uL (0-0.5); Absolute Eosinophils 0.4 K/uL (0-0.5); Absolute Monocytes 0.7 K/uL (0.1-1.3); Absolute Neutrophil 8.7 K/uL (1.8-8.0); Basophils % 0.8 % (0-1.3); Eosinophils % 3.5 % (0-4.4); Hematocrit 42.5 % (36.0-45.0); Hemoglobin 14.6 g/dL (12.0-15.0); Lymphocytes % 16.9 % (15.3-44.8); MCH 28.9 pg (27.0-35.0); MCHC 34.4 g/dL (32.0-36.0); Monocytes % 5.9 % (3.3-12.3); Neutrophils % 72.9 % (41.7-73.7); Platelets 317 thou/uL (152-406); RBC Red Blood Cell Count 5.06 M/uL (3.86-4.86); Red Cell Distribution Width 13.9 % (12.1-15.2)
[2024-08-11 06:27] LABS: Albumin 2.8 g/dL (3.4-5.0); Albumin/Globulin Ratio 0.8 (1.1-1.8); Anion Gap 11.8 mEq/L (5.0-15.0); Bilirubin Total 0.7 mg/dL (0.2-1.0); Globulin 3.6 g/dL (2.3-3.5); Potassium 3.8 mEq/L (3.5-5.1); Protein, Total 6.4 g/dL (6.4-8.2)
[2024-08-11] MEDS: HEPARIN 5000 UNIT/ML 1 ML VIAL IV SCH (06:29)
[2024-08-11] MEDS ORDERED: HEPARIN 5000 UNIT/ML 1 ML VIAL ONE ×2 (06:33→09:50)
[2024-08-11 06:39] LABS: Troponin High Sensitivity 10034.7 pg/mL (<58.9)
[2024-08-11] MEDS ORDERED: HEPARIN/D5W 25,000 UNIT/500 ML BAG IV SCH (07:00)
[2024-08-11] MEDS: ASPIRIN EC 81 MG TAB PO SCH (08:26)
[2024-08-11] MEDS: CLOPIDOGREL 75 MG TABLET PO SCH (08:26)
--- NOTE | 2024-08-11 08:27 | P.CNS ---
Date of Consult: 08/11/24 Chief Complaint: NSTEMI History of Present Illness: Patient with PMH of CAD, LAD PCI, DM, HTN, presented with angina for the last few days, typical, also report SOB, denies palpitations, no syncope. Allergies No Known Allergies Allergy (Verified 01/09/16 18:40) Home medications list reviewed: Yes Home Medications: Clopidogrel Bisulfate [Plavix*] 75 mg PO DAILY #30 tablet 01/11/16 Nitroglycerin [Nitrostat*] 0.4 mg SL UD PRN #1 bottle 01/11/16 Glimepiride 2 mg PO BID #60 tablet 01/12/16 Metformin ER [Glucophage ER*] 1,000 mg PO BID #60 tab.sa 01/12/16 Metoprolol Tartrate [Lopressor*] 50 mg PO BID #60 tab 01/12/16 Simvastatin 40 mg PO BEDTIME #30 tablet 01/12/16 - Past Medical/Surgical History Diabetic: Yes -: anxiety -: hypertension -: diabetes -: tubal ligation -: cholecystectomy -: heart stents 2012 - Family History Mother Medical History: Hypertension Notes: spurs heels, knee problems Father Medical History: Hypertension, Diabetes Notes: dialysis, esrd - Social History Smoking Status: Current every day smoker Alcohol use: No CD- Drugs: No Caffeine use: Yes Review of Systems 10-point ROS is otherwise unremarkable Physical Examination Temp Pulse Resp BP Pulse Ox 98.2 F 88 18 103/41 L 94 08/11/24 05:01 08/11/24 05:01 08/11/24 05:01 08/11/24 05:01 08/11/24 05:01 General: Alert, In no apparent distress HEENT: Atraumatic, PERRLA, Mucous membr. moist/pink, EOMI, Sclerae nonicteric Neck: Supple, 2+ carotid pulse no bruit, No LAD, Without JVD or thyroid abnormality Respiratory: Clear to auscultation bilaterally, Normal air movement Cardiovascular: Regular rate/rhythm, Normal S1 S2 Gastrointestinal: Normal bowel sounds, No tenderness Musculoskeletal: No tenderness Integumentary: No rashes Neurological: Normal gait, Normal speech, Normal tone, Normal affect Lymphatics: No axilla or inguinal lymphadenopathy Laboratory Data (last 24 hrs) 08/10/24 08/10/24 08/10/24 17:55 17:55 17:55 WBC 14.90 H Hgb 16.5 H Hct 48.2 H Plt Count 347 PT 10.8 INR 0.94 Sodium 132 L Potassium 3.7 BUN 13 Creatinine 0.59 Glucose 205 H Magnesium 1.7 Total Bilirubin 0.5 AST 67 H ALT 25 Alkaline Phosphatase 181 H Lipase 26 - Problems (1) NSTEMI (non-ST elevated myocardial infarction) Current Visit: Yes Status: Acute Plan: NPO for coronary angiogram ASA 81 mg daily Lipitor 40 mg daily Heparin ACS protocol get echo (2) HTN (hypertension) Current Visit: No Status: Chronic Plan: continue metoprolol 50 mg po bid continue to monitor. Qualifiers: Hypertension type: essential hypertension Qualified Code(s): I10 - Essential (primary) hypertension (3) Hyperlipidemia Current Visit: No Status: Acute Plan: lipitor 40 mg daily Qualifiers: Hyperlipidemia type: mixed hyperlipidemia Qualified Code(s): E78.2 - Mixed hyperlipidemia
[2024-08-11 09:10] VITALS: TEMP 98.1
[2024-08-11] MEDS ORDERED: LIDOCAINE 1% 20 ML MDV ONE (09:49)
[2024-08-11] MEDS ORDERED: HEPA 1000U/500MLS 2,000 UNIT/1,000 ML BAG IV ONE (09:49)
[2024-08-11] MEDS ORDERED: MIDAZOLAM HCL 2 MG/2 ML INJ ONE ×3 (09:49→12:04)
[2024-08-11] MEDS ORDERED: HEPARIN 10,000 UNIT/10 ML VIAL IV ONE (09:49)
[2024-08-11] MEDS ORDERED: TICAGRELOR 90 MG TABLET PO ONE (09:50)
[2024-08-11] MEDS ORDERED: CLOPIDOGREL 75 MG TABLET ONE (09:50)
[2024-08-11] MEDS ORDERED: ATROPINE SULF 1 MG/10 ML SYR IV ONE (09:50)
[2024-08-11] MEDS ORDERED: FENTANYL CITR 100 MCG/2 ML ONE ×2 (09:50→12:05)
[2024-08-11] MEDS ORDERED: ASPIRIN 81 MG CHEWABLE TABLET ONE (09:51)
[2024-08-11 10:03] VITALS: BP 177/69; O2SAT 100
[2024-08-11] MEDS ORDERED: NALOXONE 0.4 MG/ML VIAL ONE (10:11)
[2024-08-11] MEDS ORDERED: FLUMAZENIL 0.1 MG/ML (5 mL VIAL) IV ONE (10:11)
--- NOTE | 2024-08-11 10:48 | ECHO ---
HEIGHT: 5 ft 0 in WEIGHT: 202 lb 12.8 oz DATE OF STUDY: 08/12/[address]: Du Spencer DO 2-DIMENSIONAL: YES M.MODE: YES DOPPLER: YES COLOR FLOW: YES TDS: NO PORTABLE: YES DEFINITY: NO BUBBLE STUDY: NO DIAGNOSIS: NSTEMI CARDIAC HISTORY: CATHERIZATION: YES SURGERY: NO PROSTHETIC VALVE: NO PACEMAKER: NO MEASUREMENTS (cm) DIASTOLIC (NORMALS) SYSTOLIC (NORMALS) IVSd 0.9 (0.6-1.2) LA Diam 3.5 (1.9-4.0) LVEF 45-50% LVIDd 4.6 (3.5-5.7) LVIDs 2.5 (2.0-3.5) %FS 46% LVPWd 1.2 (0.6-1.2) Ao Diam 2.6 (2.0-3.7) 2 DIMENSIONAL ASSESSMENT: RIGHT ATRIUM: NORMAL LEFT ATRIUM: NORMAL RIGHT VENTRICLE: NORMAL LEFT VENTRICLE: NORMAL TRICUSPID VALVE: TRACE OF TRICUSPID REGURGITATION MITRAL VALVE: NORMAL PULMONIC VALVE: NORMAL AORTIC VALVE: NORMAL PERICARDIAL EFFUSION: NONE AORTIC ROOT: NORMAL LEFT VENTRICULAR WALL MOTION: APICAL WALL AKINESIS. DOPPLER/COLOR FLOW: IMPAIRED RELAXATION. COMMENTS: 1. MILDLY REDUCED LEFT VENTRICULAR SYTOLIC FUNCTION, EJECTION FRACTION 45-50%, WALL MOTION ABNORMALITY ABOVE. 2. GRADE I DIASTOLIC DYSFUNCTION. TECHNOLOGIST: JASON LERMA
[2024-08-11] MEDS ORDERED: Phenylephrine HCl 10 MG/ML 1 ML VIAL ONE (11:45)
[2024-08-11] MEDS ORDERED: ONDANSETRON 4 MG/2 ML VIAL ONE ×2 (11:48)
[2024-08-11] MEDS ORDERED: D5LR 1,000 ML IV SCH (12:15)
[2024-08-11] MEDS ORDERED: ETOMIDATE 20 MG/10 ML VIAL IV ONE (12:18)
[2024-08-11] MEDS ORDERED: AMIODARONE IN DEXTROSE,ISO-OSM 360 MG/200 ML BAG IV ONE (12:25)
[2024-08-11] MEDS ORDERED: NA CHLORIDE 0.9% 500 ML ONE (12:32)
[2024-08-11] MEDS ORDERED: NOREPINEPHRINE BITARTRATE/D5W 4 MG/250 ML KIT IV ONE (12:40)
[2024-08-11] MEDS ORDERED: D5W IV SCH (13:00)
[2024-08-11] MEDS ORDERED: NA BICARB IV SCH (13:00)
[2024-08-11] MEDS ORDERED: AMIODARONE HCL 900 MG in Dextrose 5%-Water 482 ML IV SCH (13:00)
--- NOTE | 2024-08-11 16:16 | OP ---
Date of Procedure: 08/11/2024 Surgeon: Aravind Urbina Procedure Performed: 1. Selective coronary angiogram. 2. Percutaneous coronary intervention of the mid left anterior descending artery with Synergy 2.5 x 3 8 mm drug-eluting stent. 3. Percutaneous coronary intervention of the proximal left anterior descending artery with Synergy 3. 0 x 12 mm drug-eluting stent. 4. Impella insertion, left ventricular cashier assistant device insertion. Indication For Procedure: The patient with history of coronary artery disease, multiple stent placem ents, noncompliant with medications and she has presented with high-risk [id number] PA and drop in ejection fraction. Complications: The patient had a cardiac arrest during the procedure. Sedation Time: 1 hour with 2 of Versed and 50 of fentanyl. Access: Right ulnar and right common femoral artery. Description Of Procedure: After risks, benefits, and alternatives were explained to the patient, the patient agreed to proceed with procedure and signed informed consent. The patient was brought back to the laboratory engineer, prepped and draped in sterile fashion. Time-out was performed. Sedation was admini stered. Right radial artery was assessed. This was too small for a catheter insertion, so right uln ar artery access was obtained using ultrasound-guided micropuncture technique. [place] 4 catheter was advanced over the J-wire to the LV cavity. LVEDP was obtained, which was 20 mmHg. Pullback did not show any gradient. Same catheter was used for selective angiogram of the left and right coronary sys tems. That catheter was later exchanged for an XB LAD 3.0 mm guide. We were able to engage a short left main, a first run-through wire into the left circ, second run-through wire into the LAD. We sta rted pre-dilating the mid LAD 99% occlusion with regular 2.0 mm balloon followed by an NC 2.5 mm ball oon. Then, we placed a Synergy 2.5 x 38 mm drug-eluting stent and this was postdilated with an NC 3. 0 mm balloon. Next, we directed our attention to the prox LAD stent ISR as there was 80% disease ove r there. We pre-dilated the lesion with an NC 3.0 mm balloon that was followed by placement of a Syn ergy 3.0 x 12 mm drug-eluting stent. The patient started having chest pains on the table, not to be mentioned that heparin was administered. ACT was therapeutic and also repeated ACT was therapeutic. Repeat angiogram shows KAY 0 flow after the second stent placement, which is most likely secondary to diffuse disease with thrombus and plaque for migration. So, the patient started having chest pain s and she started throwing up on the table. We started losing pulse and cardiac arrest was happened, so CPR was started. We obtained a right common femoral artery access. We placed an Impella CP and while CPR was going on, repeat angiogram shows no flow beyond the mid to distal LAD stent. So, we pa ssed the wire. We pre-dilated with a regular 1.5 balloon. We were able to re-establish the flow ove r that area and repeat angiogram shows KAY-3 flow, but in a very diffuse disease, mid to distal LAD. CPR continued for almost 30 minutes. They were now able to get pulse back and the patient was anno unced on the table. Findings: 1. Left main very short almost absent. 2. Proximal LAD is diffuse disease with 30%-40% disease then there is a proximal to mid LAD stent fred t got the diffuse 40% disease, but the proximal portion of the stent got 80% ISR. PCI done as above and then there is a mid LAD 99%-100% lesion with KAY 0 flow. We were able to pre-dilate that and pu t an Synergy 2.5 x 38 mm drug-eluting stent that was overlapped with old mid to distal LAD stent that got KAY 0 flow. PTCA was done then and distally the LAD got like 99% diffuse disease. 3. Left circ dominant and gives large OM that got a stent that is 100% occluded and then continue as a left PDA. 4. RCA, small non-dominant diffuse 80% disease. Assessment And Plan: Significant mid left anterior descending artery disease, status post percutaneo us coronary intervention as above. Also, significant proximal left anterior descending artery stent ISR, status post percutaneous coronary intervention as above, patient had a cardiac arrest and she did not make it through the procedure. TA/PRINCE Voice ID: [id number] Report ID: [id number]
--- NOTE | 2024-08-11 16:27 | P.DS ---
Admission Date: 08/10/24 Discharge Date: 08/11/24 Disposition: Reason for Admission: NSTEMI Consultations: Cardiology- Dr. Urbina Brief History of Present Illness: 59-year-old female with past medical history of diabetes, hypertension, hyperlipidemia, obesity, CAD status post stents came to ER with chest pain. Pain is located retrosternally with radiation to left side of arm pressure-like feeling. 4 out of 10 in severity at the time of interview. No fever or chills. Pain is not related to the position or exercise. Associated with mild shortness of breath. Denies any diaphoresis. No nausea vomiting or diarrhea. Patient was assessed in the ER and was admitted for further management of NSTEMI Hospital Course: Patient was admitted to the hospital for NSTEMI with elevated troponin of up to 10,034.7 she had a history of CAD with previous stents. Overnight she was maintained on a heparin drip. In the morning she was seen by myself and cardiology at bedside. Given her markedly elevated high-sensitivity troponin and history of CAD with previous stents it was determined she would require coronary angiogram with possible intervention. Patient was brought to the [facility] for coronary angiogram with possible PCI and unfortunately her coronary angiogram was complicated with cardiac arrest. Patient did not survive her cardiac arrest. See [facility] report for further details related to procedure and code. Problem list Cardiac arrest CAD NSTEMI Hypertension Hyperlipidemia Diabetes Vital Signs/Physical Exam: Temp Pulse Resp BP Pulse Ox 98.1 F 64 18 177/69 H 94 08/11/24 09:08 08/11/24 09:15 08/11/24 09:15 08/11/24 09:15 08/11/24 08:00 General: Unresponsive HEENT: Other (pupils fixed, dilated) Neck: Other (no palpable carotid pulse) Respiratory: Other (no spontaneous breathing) Cardiovascular: Other (No audible heart sounds) Capillary refill: None Laboratory Data at Discharge: WBC 12.00 thou/uL (4.3-10.9) H 08/11/24 05:40 Hgb 14.6 g/dL (12.0-15.0) D 08/11/24 05:40 Hct 42.5 % (36.0-45.0) 08/11/24 05:40 Plt Count 317 thou/uL (152-406) 08/11/24 05:40 PT 10.8 SECONDS (10-13.0) 08/10/24 17:55 INR 0.94 08/10/24 17:55 APTT 36.6 SECONDS (27.2-37.4) 08/11/24 05:40 Sodium 135 mEq/L (136-145) L 08/11/24 05:40 Potassium 3.8 mEq/L (3.5-5.1) 08/11/24 05:40 BUN 14 mg/dL (7-18) 08/11/24 05:40 Creatinine 0.54 mg/dL (0.55-1.02) L 08/11/24 05:40 Glucose 239 mg/dL (74-106) H 08/11/24 05:40 Magnesium 1.7 mg/dL (1.6-2.4) 08/10/24 17:55 Total Bilirubin 0.7 mg/dL (0.2-1.0) 08/11/24 05:40 AST 143 U/L (15-37) H 08/11/24 05:40 ALT 112 U/L (13-56) H 08/11/24 05:40 Alkaline Phosphatase 248 U/L (45-117) H D 08/11/24 05:40 Lipase 26 U/L (13-75) 08/10/24 17:55 Home Medications: Clopidogrel Bisulfate [Plavix*] 75 mg PO DAILY #30 tablet 01/11/16 Nitroglycerin [Nitrostat*] 0.4 mg SL UD PRN #1 bottle 01/11/16 Glimepiride 2 mg PO BID #60 tablet 01/12/16 Metformin ER [Glucophage ER*] 1,000 mg PO BID #60 tab.sa 01/12/16 Metoprolol Tartrate [Lopressor*] 50 mg PO BID #60 tab 01/12/16 Simvastatin 40 mg PO BEDTIME #30 tablet 01/12/16 Physician Discharge Instructions: May she rest in peace Followup: NONE,NONE [Primary Care Provider] - Time spent managing pt's care (in minutes): 65
[2024-08-11] MEDS ORDERED: EPINEPHrine 1 MG/10 ML SYR IV ONE (16:43)
[2024-08-11] MEDS ORDERED: Calcium Chloride 10% INJ SYR IV ONE (16:43)
[2024-08-11] MEDS ORDERED: LIDOCAINE 100 MG/5 ML SYRINGE IV ONE (16:43)
[2024-08-11] MEDS ORDERED: SODIUM CHL 0.9% 500 ML BAG IV ONE (16:43)
--- NOTE | 2024-08-18 12:50 | EKG ---
Test Date: 2024-08-10 Test Time: 21:01:04 Anime Artist: MEASUREMENT RESULTS: Intervals: Rate: 96 AL: 178 QRSD: 84 QT: 336 QTc: 424 [employer]: P: 64 AL: 178 QRS: 69 T: 70 INTERPRETIVE STATEMENTS: Normal sinus rhythm Low voltage QRS Septal infarct, age undetermined Abnormal ECG Compared to ECG 08/10/2024 17:40:45 No significant changes Electronically Signed On 08-18-24 12:33:56 CDT by Aravind Urbina
--- NOTE | 2024-08-18 12:51 | EKG ---
Test Date: 2024-08-10 Test Time: 17:40:45 [employer]: ALP MEASUREMENT RESULTS: Intervals: Rate: 95 VA: 166 QRSD: 78 QT: 312 QTc: 392 [place]: P: 58 VA: 166 QRS: 59 T: 54 INTERPRETIVE STATEMENTS: Normal sinus rhythm Low voltage QRS Cannot rule out Anteroseptal infarct, age undetermined Abnormal ECG Compared to ECG 01/08/2018 16:34:48 Low QRS voltage now present Myocardial infarct finding still present Electronically Signed On 08-18-24 12:34:05 CDT by Aravind Urbina
== END 2024-08-11 16:30 | disposition expired | DRG 322 ==
LOC: ER 17:06 → ERHOLD 20:42
PROVIDERS: ADMIT Family Medicine; ATTEND Hospitalist
PROC: 4A033R1 Measurement of Arterial Saturation, Peripheral, Percutaneous Approach (ICD-10-PCS; 2024-08-10)
PROC: 027035Z Dilation of Coronary Artery, One Artery with Two Drug-eluting Intraluminal Devices, Percutaneous Approach (ICD-10-PCS; principal; 2024-08-11)
PROC: 4A023N7 Measurement of Cardiac Sampling and Pressure, Left Heart, Percutaneous Approach (ICD-10-PCS; 2024-08-11)
PROC: B2111ZZ Fluoroscopy of Multiple Coronary Arteries using Low Osmolar Contrast (ICD-10-PCS; 2024-08-11)
PROC: 5A12012 Performance of Cardiac Output, Single, Manual (ICD-10-PCS; 2024-08-11)
DX: I21.4 Non-ST elevation (NSTEMI) myocardial infarction (principal); I46.9 Cardiac arrest, cause unspecified; I10 Essential (primary) hypertension; E66.9 Obesity, unspecified; E78.2 Mixed hyperlipidemia; E11.9 Type 2 diabetes mellitus without complications; I25.110 Atherosclerotic heart disease of native coronary artery with unstable angina pectoris; I25.2 Old myocardial infarction; F17.210 Nicotine dependence, cigarettes, uncomplicated; Z95.5 Presence of coronary angioplasty implant and graft; Z68.39 Body mass index [BMI] 39.0-39.9, adult; Z79.02 Long term (current) use of antithrombotics/antiplatelets; Z79.84 Long term (current) use of oral hypoglycemic drugs; Z28.310 Unvaccinated for COVID-19; Z79.899 Other long term (current) drug therapy
CPT/HCPCS: 33990; 36415; 71045; 71275; 74175; 76937; 80048; 80053; 80076; 81001; 83690; 83735; 83880; 84484; 85025; 85347; 85610; 85730; 92950; 93005; 93306; 93458; 94760; 96361; 96365; 96366; 96375; 99152; 99285; C1725; C1877; C1893; C9600; J0171; J0282; J0461; J1644; J2003; J2250; J2310; J2371; J2405; J3010; J7040; J7060; J7121; Q9967